=== PATIENT | male | born 1970 | race Caucasian/White ===

== ENCOUNTER 2016-11-04 14:57 | Emergency (ER) | payer BC, MEDICAID ==
--- NOTE | 2016-11-04 15:32 | ED ---
General Adult HPI - General Chief complaint: Recheck/Abnormal Lab/Rx Stated complaint: Sent by PCP for medication reaction Time Seen by Provider: 11/04/16 15:14 Source: patient, RN notes reviewed Mode of arrival: ambulatory Limitations: no limitations - History of Present Illness Initial comments: 46-year-old male presents emergency Department for recheck. Patient apparently to have of his prescription of Xanax last 5 days. Patient has only 42 tablets left of is 90 tab prescription filled on October 29. Patient has not had any Xanax yesterday or today. This apparently happened on Thursday. Patient was evaluated by PCP yesterday who ordered lab work and wanted to have a recheck today but he refuses to go and so is advised to be taken to the emergency department. Patient states that he was very anxious and that his medication was not calming him down so he kept taking them. Patient states he had no intention of harming himself there was very vague at this time. Patient is here with family who is concerned. Patient states that he did have large amount of nausea vomiting yesterday any states his is from swallowing his tobacco chew. Patient states she's also had a cough and some shortness of breath. Denies any chest pain this time. Patient states he has normal nausea no vomiting no diarrhea today. Patient was extremely lethargic, sleepy yesterday secondary taking his Xanax. Patient not exactly sure how many Xanax she took on Thursday. Patient has been on Xanax for over one year prescribed by primary care physician. - Related Data Home Medications Medication Instructions Recorded Confirmed ALPRAZolam [Xanax] 0.5 mg PO TID PRN 11/04/16 11/04/16 Citalopram Hydrobromide [CeleXA] 40 mg PO DAILY 11/04/16 11/04/16 Omeprazole [PriLOSEC] 20 mg PO DAILY 11/04/16 11/04/16 Suvorexant [Belsomra] 15 mg PO HS 11/04/16 11/04/16 Previous Rx's Medication Instructions Recorded Levofloxacin [Levaquin] 500 mg PO DAILY #10 tab 11/04/16 Allergies Allergy/AdvReac Type Severity Reaction Status Date / Time No Known Allergies Allergy Verified 11/04/16 15:06 Review of Systems ROS Statement: Those systems with pertinent positive or pertinent negative responses have been documented in the HPI. ROS Other: All systems not noted in ROS Statement are negative. Past Medical History Past Medical History: GERD/Reflux, Sleep Apnea/CPAP/BIPAP Additional Past Medical History / Comment(s): Ulcerative colitis, back pain History of Any Multi-Drug Resistant Organisms: None Reported Additional Past Surgical History / Comment(s): colonoscopy, neck surgery Past Anesthesia/Blood Transfusion Reactions: No Reported Reaction Past Psychological History: No Psychological Hx Reported Smoking Status: Current every day smoker Past Alcohol Use History: Occasional Past Drug Use History: None Reported - Past Family History Mother Family Medical History: No Reported History General Exam Limitations: no limitations General appearance: alert, in no apparent distress Head exam: Present: atraumatic, normocephalic, normal inspection Eye exam: Present: normal appearance, PERRL, EOMI. Absent: scleral icterus, conjunctival injection, periorbital swelling ENT exam: Present: normal exam, normal oropharynx, mucous membranes moist, TM's normal bilaterally, normal external ear exam Neck exam: Present: normal inspection, full ROM. Absent: tenderness, meningismus, lymphadenopathy Respiratory exam: Present: normal lung sounds bilaterally. Absent: respiratory distress, wheezes, rales, rhonchi, stridor Cardiovascular Exam: Present: normal rhythm, tachycardia, normal heart sounds. Absent: systolic murmur, diastolic murmur, rubs, gallop, clicks GI/Abdominal exam: Present: soft, normal bowel sounds. Absent: distended, tenderness, guarding, rebound, rigid Neurological exam: Present: alert, oriented X3, CN II-XII intact Psychiatric exam: Present: flat affect Skin exam: Present: warm, dry, intact, normal color. Absent: rash Course Vital Signs 11/04/16 11/04/16 15:03 18:15 Temperature 98.2 F Pulse Rate 110 H 82 Respiratory 20 16 Rate Blood Pressure 125/80 132/71 O2 Sat by Pulse 95 99 Oximetry Medical Decision Making - Medical Decision Making 46-year-old male presented for multiple reasons. Patient did take too many Xanax and had some cardiac behavior yesterday vomiting. Patient is on have pneumonia on x-ray today and he has had a cough. Patient's lab work otherwise within normal limits. Patient was evaluated by EPS does not meet inpatient criteria. EPS did discuss case with psychiatrist. They long discussion with his medication and abusing his medications. Patient is advised that he cannot stop his Xanax abruptly secondary to possible withdrawal symptoms because his been taken for over a year. Patient does have 42 tablets of Xanax left at this time he was educated on proper usage of his medication but also place to wean off his medication by EPS. Patient will be discharged follow-up with Dr. Moran in one to 2 days. - Lab Data Result diagrams: 11/04/16 15:55 11/04/16 15:55 Lab Results 11/04/16 11/04/16 11/04/16 Range/Units 15:55 15:55 15:55 WBC 17.0 H (3.8-10.6) k/uL RBC 4.51 (4.30-5.90) m/uL Hgb 12.0 L (13.0-17.5) gm/dL Hct 37.5 L (39.0-53.0) % MCV 83.1 (80.0-100.0) fL MCH 26.5 (25.0-35.0) pg MCHC 31.9 (31.0-37.0) g/dL RDW 13.4 (11.5-15.5) % Plt Count 247 (150-450) k/uL Neutrophils % 84 % Lymphocytes % 9 % Monocytes % 5 % Eosinophils % 1 % Basophils % 0 % Neutrophils # 14.3 H (1.3-7.7) k/uL Lymphocytes # 1.5 (1.0-4.8) k/uL Monocytes # 0.9 (0-1.0) k/uL Eosinophils # 0.2 (0-0.7) k/uL Basophils # 0.0 (0-0.2) k/uL Hypochromasia Slight PT 10.7 (9.0-12.0) sec INR 1.1 (<1.1) APTT 24.0 (22.0-30.0) sec Sodium 140 (137-145) mmol/L Potassium 4.0 (3.5-5.1) mmol/L Chloride 104 (98-107) mmol/L Carbon Dioxide 27 (22-30) mmol/L Anion Gap 9 mmol/L BUN 15 (9-20) mg/dL Creatinine 1.10 (0.66-1.25) mg/dL Est GFR (MDRD) Af Amer >60 (>60 ml/min/1.73 sqM) Est GFR (MDRD) Non-Af >60 (>60 ml/min/1.73 sqM) Glucose 106 H (74-99) mg/dL Calcium 9.5 (8.4-10.2) mg/dL Total Bilirubin 0.9 (0.2-1.3) mg/dL AST 16 L (17-59) U/L ALT 28 (21-72) U/L Alkaline Phosphatase 60 (38-126) U/L Troponin I (0.000-0.034) ng/mL Total Protein 7.1 (6.3-8.2) g/dL Albumin 3.9 (3.5-5.0) g/dL Lipase 33 (23-300) U/L TSH 0.287 L (0.465-4.680) mIU/L Free T4 1.05 (0.78-2.19) ng/dL Urine Color Urine Appearance (Clear) Urine pH (5.0-8.0) Ur Specific Kirksey (1.001-1.035) Urine Protein (Negative) Urine Glucose (UA) (Negative) Urine Ketones (Negative) Urine Blood (Negative) Urine Nitrite (Negative) Urine Bilirubin (Negative) Urine Urobilinogen (<2.0) mg/dL Ur Leukocyte Esterase (Negative) Salicylates <1.0 mg/dL Urine Opiates Screen (NotDetected) Ur Oxycodone Screen (NotDetected) Urine Methadone Screen (NotDetected) Ur Propoxyphene Screen (NotDetected) Acetaminophen <10.0 ug/mL Ur Barbiturates Screen (NotDetected) U Tricyclic Antidepress (NotDetected) Ur Phencyclidine Scrn (NotDetected) Ur Amphetamines Screen (NotDetected) U Methamphetamines Scrn (NotDetected) U Benzodiazepines Scrn (NotDetected) Urine Cocaine Screen (NotDetected) U Marijuana (THC) Screen (NotDetected) Serum Alcohol <10 mg/dL 11/04/16 11/04/16 Range/Units 15:55 18:20 WBC (3.8-10.6) k/uL RBC (4.30-5.90) m/uL Hgb (13.0-17.5) gm/dL Hct (39.0-53.0) % MCV (80.0-100.0) fL MCH (25.0-35.0) pg MCHC (31.0-37.0) g/dL RDW (11.5-15.5) % Plt Count (150-450) k/uL Neutrophils % % Lymphocytes % % Monocytes % % Eosinophils % % Basophils % % Neutrophils # (1.3-7.7) k/uL Lymphocytes # (1.0-4.8) k/uL Monocytes # (0-1.0) k/uL Eosinophils # (0-0.7) k/uL Basophils # (0-0.2) k/uL Hypochromasia PT (9.0-12.0) sec INR (<1.1) APTT (22.0-30.0) sec Sodium (137-145) mmol/L Potassium (3.5-5.1) mmol/L Chloride (98-107) mmol/L Carbon Dioxide (22-30) mmol/L Anion Gap mmol/L BUN (9-20) mg/dL Creatinine (0.66-1.25) mg/dL Est GFR (MDRD) Af Amer (>60 ml/min/1.73 sqM) Est GFR (MDRD) Non-Af (>60 ml/min/1.73 sqM) Glucose (74-99) mg/dL Calcium (8.4-10.2) mg/dL Total Bilirubin (0.2-1.3) mg/dL AST (17-59) U/L ALT (21-72) U/L Alkaline Phosphatase (38-126) U/L Troponin I <0.012 (0.000-0.034) ng/mL Total Protein (6.3-8.2) g/dL Albumin (3.5-5.0) g/dL Lipase (23-300) U/L TSH (0.465-4.680) mIU/L Free T4 (0.78-2.19) ng/dL Urine Color Yellow Urine Appearance Clear (Clear) Urine pH 6.5 (5.0-8.0) Ur Specific Kirksey 1.010 (1.001-1.035) Urine Protein Negative (Negative) Urine Glucose (UA) Negative (Negative) Urine Ketones Negative (Negative) Urine Blood Negative (Negative) Urine Nitrite Negative (Negative) Urine Bilirubin Negative (Negative) Urine Urobilinogen <2.0 (<2.0) mg/dL Ur Leukocyte Esterase Negative (Negative) Salicylates mg/dL Urine Opiates Screen Detected H (NotDetected) Ur Oxycodone Screen Not Detected (NotDetected) Urine Methadone Screen Not Detected (NotDetected) Ur Propoxyphene Screen Not Detected (NotDetected) Acetaminophen ug/mL Ur Barbiturates Screen Not Detected (NotDetected) U Tricyclic Antidepress Not Detected (NotDetected) Ur Phencyclidine Scrn Not Detected (NotDetected) Ur Amphetamines Screen Not Detected (NotDetected) U Methamphetamines Scrn Not Detected (NotDetected) U Benzodiazepines Scrn Detected H (NotDetected) Urine Cocaine Screen Not Detected (NotDetected) U Marijuana (THC) Screen Not Detected (NotDetected) Serum Alcohol mg/dL Disposition Clinical Impression: Pneumonia, Benzodiazepine misuse, Nausea & vomiting Disposition: HOME SELF-CARE Condition: Stable Instructions: Bacterial Pneumonia (ED) Additional Instructions: Please return to the Emergency Department if symptoms worsen or any other concerns. Prescriptions: Levofloxacin [Levaquin] 500 mg PO DAILY #10 tab Time of Disposition: 19:01
[2016-11-04 16:11] LABS: Basophils % (A) 0 %; CHCM 31.4; Eosinophils # (A) 0.2 k/uL (0-0.7); Eosinophils % (A) 1 %; HCT 37.5 % (39.0-53.0); HDW 2.52; Hypochromasia Slight; Luc # (Auto) 0.18; Luc % (Auto) 1; Lymphocytes # (A) 1.5 k/uL (1.0-4.8); Lymphocytes % (A) 9 %; MCH 26.5 pg (25.0-35.0); MCHC 31.9 g/dL (31.0-37.0); MCV 83.1 fL (80.0-100.0); Mean Platelet Volume 7.2; Monocytes # (A) 0.9 k/uL (0-1.0); Monocytes % (A) 5 %; Neutrophils # (A) 14.3 k/uL (1.3-7.7); Neutrophils % (A) 84 %; RBC 4.51 m/uL (4.30-5.90); RDW 13.4 % (11.5-15.5); WBC (Perox) 17.05
[2016-11-04 16:17] LABS: ALT 28 U/L (21-72); AST 16 U/L (17-59); Acetaminophen <10.0 ug/mL; Alcohol <10 mg/dL; Alkaline Phosphatase 60 U/L (38-126); Anion Gap 9 mmol/L; Blood Urea Nitrogen 15 mg/dL (9-20); Calcium 9.5 mg/dL (8.4-10.2); Carbon Dioxide 27 mmol/L (22-30); Chloride 104 mmol/L (98-107); Glucose 106 mg/dL (74-99); INR 1.1 (<1.1); Non-African American GFR(MDRD) >60 (>60 ml/min/1.73 sqM); Prothrombin Time 10.7 sec (9.0-12.0); Salicylate <1.0 mg/dL; Sodium 140 mmol/L (137-145); Total Bilirubin 0.9 mg/dL (0.2-1.3); Total Protein 7.1 g/dL (6.3-8.2)
--- NOTE | 2016-11-04 16:20 | XR ---
EXAMINATION TYPE: XR chest 2V DATE OF EXAM: 11/04/2016 4:13 PM COMPARISON: None HISTORY: 46-year-old male with a pain TECHNIQUE: PA and lateral views FINDINGS: The cardiomediastinal silhouette, aorta, and pulmonary vasculature are within normal limits. There is some focal patchy opacity at the left lung base. No pleural effusion. IMPRESSION: Focal area of prominent atelectasis or early infiltrate at the left base. Early pneumonia not exclude d. Consider follow-up after any potential treatment.
[2016-11-04] MEDS ORDERED: SODIUM CHLORIDE 0.9% 1,000 ML IV ONE (16:21)
[2016-11-04 18:37] LABS: Appearance,Urine Clear (Clear); Bilirubin,Urine Negative (Negative); Glucose,Urine (UA) Negative (Negative); Ketones,Urine Negative (Negative); Leukocyte Esterase,Urine Negative (Negative); Nitrite,Urine Negative (Negative); PH, Urine 6.5 (5.0-8.0); Protein,Urine Negative (Negative); UA Billing (MACRO vs. MICRO) CHEM; Urobilinogen,Urine <2.0 mg/dL (<2.0)
[2016-11-04] MEDS ORDERED: LEVOFLOXACIN 500 MG TAB PO STA (18:39)
[2016-11-04 19:18] VITALS: BP 125/74; PULSE 105; RESP 18; TEMP 98.5
== END 2016-11-04 19:18 | disposition home or self-care (01) ==
LOC: EC 14:57
DX: F19.90 Other psychoactive substance use, unspecified, uncomplicated (principal); J18.9 Pneumonia, unspecified organism; R11.2 Nausea with vomiting, unspecified; K21.9 Gastro-esophageal reflux disease without esophagitis; F17.200 Nicotine dependence, unspecified, uncomplicated; Z79.899 Other long term (current) drug therapy
CPT/HCPCS: 36415; 71020; 80053; 80306; 80320; 81003; 82075; 83520; 83690; 84439; 84443; 84484; 85025; 85610; 85730; 93005; 96360; 99284

== ENCOUNTER 2017-05-22 07:55 | Day surgery (SDC) | payer MEDICAID ==
[2017-05-20 16:08] VITALS: BMI 28.7
[~2017-05-22 07:55] MED LIST: LACTATED RINGERS 1,000 ML IV ONE
[2017-05-22] MEDS ORDERED: LIDOCAINE 1% 20 ML VIAL (10MG/ML) FOR IV START INTRADERMA ONE (08:25)
[2017-05-22 08:29] VITALS: RESP 16; TEMP 99.5
[2017-05-22] MEDS ORDERED: LIDOCAINE 1% INJ 10MG/ML (20 ML MDV) ONE (08:30)
[2017-05-22] MEDS ORDERED: PROPOFOL 10 MG/ML 20 ML VIAL IV ONE (08:30)
--- NOTE | 2017-05-22 08:50 | P.PCN ---
Date of Procedure: 05/22/17 Procedure(s) Performed: BRIEF HISTORY: Patient is a 47-year-old pleasant white male, scheduled for an elective colonoscopy as a part of screening for long-standing history of ulcerative colitis.he was diagnosed with ulcerative colitis at age 20. Last endoscopy was in [address] Pacheco and was normal according to the patient. PROCEDURE PERFORMED: Colonoscopy with biopsy. PREOPERATIVE DIAGNOSIS: surveillance of long-standing history of ulcerative colitis. IV sedation per Anesthesia. PROCEDURE: After informed consent was obtained, the patient, was brought into the endoscopy unit. IV sedation was administered by Anesthesia under continuous monitoring. Digital rectal examination was normal. Initially the Olympus CF- 160 flexible video colonoscope was then inserted in the rectum, gradually advanced into the cecum without any difficulty. Careful examination was performed as the scope was gradually being withdrawn. Ileocecal valve and the appendiceal orifice were visualized and appeared normal. Prep was excellent. Mucosa of the cecum, ascending colon, transverse colon, descending colon, sigmoid colon, and rectum appeared normal. random biopsies were done from the cecum to rectum at every 10 cm intervals to rule out dysplasia.Retroflexion was performed in the rectum and no lesions were seen. The patient tolerated the procedure well. IMPRESSION: Normal-appearing colon from rectum to cecumwith no evidence of active colitis or colon rectal neoplasia . RECOMMENDATIONS: Findings of this examination were discussed with the patient as well as his family. He was advised to follow with the biopsy results.he can have a repeat severance colonoscopy in 3 years..
[2017-05-22 09:06] VITALS: BP 130/76; PULSE 103
== END 2017-05-22 09:24 | disposition home or self-care (01) ==
LOC: ORWHC2ENDO 07:55
PROVIDERS: ATTEND Internal Medicine Gastroenterology
DX: Z12.11 Encounter for screening for malignant neoplasm of colon (principal); K51.90 Ulcerative colitis, unspecified, without complications; K21.9 Gastro-esophageal reflux disease without esophagitis; G47.33 Obstructive sleep apnea (adult) (pediatric); Z79.899 Other long term (current) drug therapy
CPT/HCPCS: 88305; 45380; J2001; J2704

== ENCOUNTER 2019-06-27 01:25 | Emergency (ER) | payer MEDICAID ==
[2019-06-27 01:35] VITALS: BP 155/100; PULSE 79; RESP 20; TEMP 98.5
[2019-06-27] MEDS ORDERED: ACETAMINOPHEN TAB 500 MG TAB PO STA (01:48)
[2019-06-27] MEDS ORDERED: IBUPROFEN 600 MG TAB PO STA (01:48)
[2019-06-27] MEDS ORDERED: TOPICAL SKIN ADHESIVE 1 EACH AMP TOPICAL ONE (01:48)
--- NOTE | 2019-06-27 01:52 | ED ---
Wound/Laceration HPI - General Chief Complaint: Wound/Laceration Stated Complaint: Fall - face lac Time Seen by Provider: 06/27/19 01:37 Source: patient, family Mode of arrival: ambulatory Limitations: no limitations - History of Present Illness Initial Comments: 49-year-old male patient presents to the emergency department today for evaluation of laceration to his nasal bridge. Patient states he was up using the bathroom when he tripped over a rug and fell striking his face on the floor. Patient denies loss of consciousness with this injury. Denies any current headache, neck pain, or back pain. Denies any extremity injuries. Denies any bleeding from the nostrils. Patient denies any chest pain, shortness of breath, dizziness, weakness, abdominal pain, nausea, vomiting, or difficulties with bowel movements or urination. - Related Data Home Medications Medication Instructions Recorded Confirmed ALPRAZolam [Xanax] 0.5 mg PO TID PRN 11/04/16 05/22/17 Omeprazole [PriLOSEC] 20 mg PO DAILY PRN 11/04/16 05/22/17 FLUoxetine HCL [PROzac] 20 mg PO HS 05/20/17 05/22/17 Mesalamine [Asacol Hd] 800 mg PO DAILY 05/20/17 05/22/17 Zolpidem [Ambien] 10 mg PO HS 05/20/17 05/22/17 Allergies Allergy/AdvReac Type Severity Reaction Status Date / Time No Known Allergies Allergy Verified 06/27/19 01:35 Review of Systems ROS Statement: Those systems with pertinent positive or pertinent negative responses have been documented in the HPI. ROS Other: All systems not noted in ROS Statement are negative. Past Medical History Past Medical History: GERD/Reflux, Sleep Apnea/CPAP/BIPAP Additional Past Medical History / Comment(s): Ulcerative colitis, History of Any Multi-Drug Resistant Organisms: None Reported Additional Past Surgical History / Comment(s): colonoscopy, neck surgery- to remove a fatty mass Past Anesthesia/Blood Transfusion Reactions: No Reported Reaction Past Psychological History: Anxiety Smoking Status: Former smoker - Past Family History Mother Family Medical History: No Reported History General Exam Limitations: no limitations General appearance: alert, in no apparent distress, other (This is a well- developed, well-nourished adult male patient in no acute distress. Vital signs upon presentation are temperature 98.5F, pulse 79, respirations 20, blood pressure 135/100, pulse ox 96% on room air) Head exam: Present: atraumatic, normocephalic, normal inspection Eye exam: Present: normal appearance, PERRL, EOMI. Absent: scleral icterus, conjunctival injection, periorbital swelling ENT exam: Present: normal oropharynx, mucous membranes moist, TM's normal bilaterally, other (There is a 1 cm irregular laceration noted to the bridge of the nose. No surrounding swelling or ecchymosis. No raccoon eyes or wagner's sign. No septal hematoma noted.) Neck exam: Present: normal inspection, full ROM, other (Nontender, no step-off, no deformity to firm midline palpation of the posterior cervical spine. Full range of motion without pain or limitation.). Absent: tenderness, meningismus, lymphadenopathy Respiratory exam: Present: normal lung sounds bilaterally. Absent: respiratory distress, wheezes, rales, rhonchi, stridor Cardiovascular Exam: Present: regular rate, normal rhythm, normal heart sounds. Absent: systolic murmur, diastolic murmur, rubs, gallop, clicks Back exam: Present: normal inspection, other (Nontender, no step-off, no deformity to firm midline palpation of the thoracic and lumbar vertebrae. Full range of motion without pain or limitation.). Absent: vertebral tenderness Neurological exam: Present: alert, oriented X3, CN II-XII intact Psychiatric exam: Present: normal affect, normal mood Skin exam: Present: warm, dry, intact, normal color. Absent: rash Course Vital Signs 06/27/19 01:32 Temperature 98.5 F Pulse Rate 79 Respiratory 20 Rate Blood Pressure 155/100 O2 Sat by Pulse 96 Oximetry Procedures - Laceration Laceration #1 Consent Obtained: verbal consent Indication: laceration Site: face Size (cm): 2 Description: irregular Pre-repair: irrigated extensively Type of Sutures: other (exofin skin adhesive) Patient Tolerated Procedure: well, no complications Medical Decision Making - Medical Decision Making 49-year-old male patient presents to the emergency department today for evaluation of laceration to the nasal bridge. Physical examination did reveal a 2 cm irregular laceration noted, minimal bleeding. Laceration was cleansed and repaired using skin adhesive. Patient is neurologically intact with no focal deficits. Is not reporting headache. Had no nasal bleeding. He'll be discharged follow up with his primary care physician for recheck in 1-2 days. Return parameters discussed in detail. He verbalizes understanding and agrees with this plan. Disposition Clinical Impression: Facial laceration Disposition: HOME SELF-CARE Condition: Good Instructions (If sedation given, give patient instructions): Skin Adhesive Care (ED), Facial Laceration (ED) Additional Instructions: Monitor for signs or symptoms of infection including but not limited to redness, swelling, drainage of pus, fever, or chills. Follow-up with her primary care physician for recheck in 1-2 days. Return to the emergency department immediately for any new, worsening, or concerning symptoms. Is patient prescribed a controlled substance at d/c from ED?: No Referrals: Vic London Jr, [Primary Care Provider] - 1-2 days Time of Disposition: 02:14
== END 2019-06-27 02:27 | disposition home or self-care (01) ==
LOC: EC 01:25
DX: S01.21XA Laceration without foreign body of nose, initial encounter (principal); F41.9 Anxiety disorder, unspecified; G47.30 Sleep apnea, unspecified; Z99.89 Dependence on other enabling machines and devices; Z87.891 Personal history of nicotine dependence; Z79.899 Other long term (current) drug therapy; W18.09XA Striking against other object with subsequent fall, initial encounter; Y92.002 Bathroom of unspecified non-institutional (private) residence as the place of occurrence of the external cause
CPT/HCPCS: 12011; 99282

== ENCOUNTER 2020-03-14 08:55 | Day surgery (SDC) | payer MEDICAID ==
[2020-03-09 15:31] VITALS: BMI 28.7
[~2020-03-14 08:55] MED LIST changes: -LACTATED RINGERS 1,000 ML IV ONE; +LACTATED RINGERS 1,000 ML IV SCH
[2020-03-14 09:13] VITALS: TEMP 97.3
[2020-03-14] MEDS ORDERED: LIDOCAINE 1% (10MG/ML) FOR IV START INTRADERMA ONE (09:17)
[2020-03-14] MEDS ORDERED: PROPOFOL 10 MG/ML 20 ML VIAL IV ONE (10:08)
[2020-03-14] MEDS ORDERED: LIDOCAINE 1% INJ 10MG/ML (20 ML MDV) ONE (10:08)
--- NOTE | 2020-03-14 10:22 | P.PCN ---
Date of Procedure: 03/14/20 Procedure(s) Performed: BRIEF HISTORY: Patient is a 49-year-old pleasant to male scheduled for an elective colonoscopy as a part of surveillance of long-standing history of ulcerative colitis diagnosed at age 20. He hasn't clinical remission. His last colonoscopy was 3 years ago. PROCEDURE PERFORMED: Colonoscopy. PREOPERATIVE DIAGNOSIS: Long-standing history of ulcerative colitis. IV sedation per Anesthesia. PROCEDURE: After informed consent was obtained, the patient, was brought into the endoscopy unit. IV sedation was administered by Anesthesia under continuous monitoring. Digital rectal examination was normal. Initially the Olympus CF-160 flexible video colonoscope was then inserted in the rectum, gradually advanced into the cecum without any difficulty. Careful examination was performed as the scope was gradually being withdrawn. Ileocecal valve and the appendiceal orifice were visualized and appeared normal. Prep was poor and several areas of the colon. Thorough irrigation was performed.. Mucosa of the cecum, ascending colon, transverse colon, descending colon, sigmoid colon, and rectum appeared normal. Biopsies were done from the cecum to rectum at every 10 cm into well. Retroflexion was performed in the rectum and no lesions were seen. The patient tolerated the procedure well. IMPRESSION: Normal-appearing colon from rectum to cecum with no evidence of colitis or colorectal neoplasia. RECOMMENDATIONS: Findings of this examination were discussed with the patient as well as a family. He was advised to follow with the biopsy results. If there is no evidence of dysplasia he can have a repeat colonoscopy in 2-3 years..
[2020-03-14 10:43] VITALS: BP 135/85; PULSE 73; RESP 20
== END 2020-03-14 10:54 | disposition home or self-care (01) ==
LOC: ORWHC2ENDO 08:55
PROVIDERS: ATTEND Internal Medicine Gastroenterology
DX: K51.90 Ulcerative colitis, unspecified, without complications (principal); K21.9 Gastro-esophageal reflux disease without esophagitis; Z79.899 Other long term (current) drug therapy; F17.200 Nicotine dependence, unspecified, uncomplicated; S02.5XXA Fracture of tooth (traumatic), initial encounter for closed fracture
CPT/HCPCS: 88305; 45380; J2001; J2704

== ENCOUNTER 2020-04-14 16:43 | Emergency (ER) | payer MEDICAID ==
[2020-04-14 17:22] VITALS: BP 126/73; PULSE 97; RESP 18; TEMP 98.8
[2020-04-14] MEDS ORDERED: KETOROLAC 15 MG/ML 1 ML VIAL IM STA (18:04)
--- NOTE | 2020-04-14 18:54 | XR ---
EXAMINATION TYPE: XR ankle complete RT DATE OF EXAM: 04/14/2020 COMPARISON: NONE HISTORY: Pain. TECHNIQUE: 3 views Ankle mortise is anatomic. There is soft tissue swelling over the lateral malleolus. there is a 5 mm nondisplaced chip fracture of the tip of the distal fibula. IMPRESSION: Acute chip fracture of the tip of the distal fibula with soft tissue swelling.
[2020-04-14] MEDS ORDERED: ACET/COD 300 MG/30 MG STARTER PACK 6 TAB BTL PO STA (19:44)
--- NOTE | 2020-04-14 19:45 | ED ---
Lower Extremity Injury HPI - General Chief Complaint: Extremity Injury, Lower Stated Complaint: RIGHT ANKLE INJURY Time Seen by Provider: 04/14/20 17:20 Source: patient Mode of arrival: wheelchair Limitations: no limitations - History of Present Illness Initial Comments: Patient is a 50-year-old male with past history of ulcerative colitis who presents emergency departments with reported bradycardia ankle pain. States he was stepping off a deck when he suffered an inversion injury and heard a cracking sound in his right ankle. Patient's was able to get up and place weight onto it. Reports that he has medial and lateral pain. Denies taking any medications for his symptoms. Presents to the emergency department for evaluation. Denies any other injuries. Did not hit his head. No associated nausea/vomiting. There are no alleviating, precipitating or modifying factors - Related Data Home Medications Medication Instructions Recorded Confirmed Omeprazole [PriLOSEC] 20 mg PO DAILY 11/04/16 03/14/20 FLUoxetine HCL [PROzac] 40 mg PO HS 05/20/17 03/14/20 Zolpidem [Ambien] 10 mg PO HS 05/20/17 03/14/20 Previous Rx's Medication Instructions Recorded Acetaminophen-Codeine 300-30mg 1 tab PO Q6H PRN 3 Days #12 tablet 04/14/20 [Tylenol w/codeine #3] Allergies Allergy/AdvReac Type Severity Reaction Status Date / Time No Known Allergies Allergy Verified 04/14/20 17:22 Review of Systems ROS Statement: Those systems with pertinent positive or pertinent negative responses have been documented in the HPI. ROS Other: All systems not noted in ROS Statement are negative. Past Medical History Past Medical History: GERD/Reflux Additional Past Medical History / Comment(s): Ulcerative Colitis. History of Any Multi-Drug Resistant Organisms: None Reported Additional Past Surgical History / Comment(s): Colonoscopy, neck surgery to remove a fatty mass. Past Anesthesia/Blood Transfusion Reactions: No Reported Reaction Past Psychological History: Depression Smoking Status: Current some day smoker Past Alcohol Use History: Occasional Past Drug Use History: None Reported - Past Family History Mother Family Medical History: No Reported History General Exam Limitations: no limitations General appearance: alert, in no apparent distress Head exam: Present: atraumatic, normocephalic, normal inspection Extremities exam: Present: tenderness (right ankle with swelling. Pain medial and lateral mallolus. 2+ DP and PT pulses. No pain with full ROM of bilateral hips, knees or in the feet. Intact sensation over the medial, lateral and dorsal b/l le) Course Vital Signs 04/14/20 17:19 Temperature 98.8 F Pulse Rate 97 Respiratory 18 Rate Blood Pressure 126/73 O2 Sat by Pulse 99 Oximetry Procedures - Orthopedic Splinting/Casting Injury #1 Side: right Lower Extremity Injury Location: short leg Lower Extremity Immobilizer: posterior splint, synthetic pre-padded splint Other Orthopedic Equipment: crutches Medical Decision Making - Medical Decision Making Upon arrival the patient is placed into room 17. A thorough history and physical exam was performed. Patient was given a 30 mg IM injection of Toradol. He was sent for an x-ray of his right ankle which demonstrates a chip fracture of the distal fibula. I discussed results with the patient. He is placed in a posterior splint. Patient is to not weight bear. He is given a prescription for crutches and Tylenol 3. Patient is to follow-up with orthopedic doctors for further management. Return to the emergency room for any new or worsening symptoms. Patient agreed to this treatment plan he was discharged home in stable condition Disposition Clinical Impression: Right fibular fracture Disposition: HOME SELF-CARE Condition: Stable Instructions (If sedation given, give patient instructions): Ankle Fracture (ED) Additional Instructions: Please follow-up with orthopedic doctor. Return to the emergency room for any new or worsening symptoms. Do not weight bear. Rest, ice and elevate the extremity Prescriptions: Acetaminophen-Codeine 300-30mg [Tylenol w/codeine #3] 1 tab PO Q6H PRN 3 Days #12 tablet PRN Reason: Pain Is patient prescribed a controlled substance at d/c from ED?: Yes When asked, does pt state using other controlled substances?: No If prescribed controlled substance>3 days was MAPS reviewed?: Prescribed <3 Days If opioid is for acute pain is fill amount 7 days or less?: Yes If Rx opioid, was Start Talking consent form obtained?: Yes Referrals: Jeremiah Norris MD [Primary Care Provider] - 1-2 days Gopal Abad DO [Doctor of Osteopathic Medicine] - 1-2 days Time of Disposition: 19:44
== END 2020-04-14 20:20 | disposition home or self-care (01) ==
LOC: EC 16:43
DX: S82.401A Unspecified fracture of shaft of right fibula, initial encounter for closed fracture (principal); K21.9 Gastro-esophageal reflux disease without esophagitis; F32.9 Major depressive disorder, single episode, unspecified; F17.200 Nicotine dependence, unspecified, uncomplicated; Z79.899 Other long term (current) drug therapy; X50.9XXA Other and unspecified overexertion or strenuous movements or postures, initial encounter
CPT/HCPCS: 73610; 99283; 29515; 96372; J1885

== ENCOUNTER 2022-07-01 05:55 | Day surgery (SDC) | payer MEDICAID ==
[2022-06-27 13:40] VITALS: BMI 29.4
[~2022-07-01 05:55] MED LIST changes: -LACTATED RINGERS 1,000 ML IV SCH; +LIDOCAINE 1% (10MG/ML) FOR IV START INTRADERMA PRN
[2022-07-01] MEDS: LACTATED RINGERS 1,000 ML IV SCH ×2 (06:14→06:59)
[2022-07-01 06:19] VITALS: TEMP 96.9
[2022-07-01] MEDS ORDERED: LIDOCAINE 2% INJ 20 MG/ML (2 ML VIAL) ONE (07:00)
[2022-07-01] MEDS ORDERED: PROPOFOL 10 MG/ML 20 ML VIAL IV ONE (07:00)
--- NOTE | 2022-07-01 07:29 | P.PCN ---
Date of Procedure: 07/01/22 Procedure(s) Performed: BRIEF HISTORY: Patient is a 52-year-old pleasant white male scheduled for an elective colonoscopy as a part of surveillance of long-standing history of ulcerative colitis diagnosed at age 20. He is been having intermittent rectal bleeding and diarrhea for the last 3 months. Currently maintained on mesalamine 1600 mg daily.daily. PROCEDURE PERFORMED: Colonoscopy with biopsy and snare polypectomy . PREOPERATIVE DIAGNOSIS: IV sedation per Anesthesia. PROCEDURE: After informed consent was obtained, the patient, was brought into the endoscopy unit. IV sedation was administered by Anesthesia under continuous monitoring. Digital rectal examination was normal. Initially the Olympus CF-160 flexible video colonoscope was then inserted in the rectum, gradually advanced into the cecum without any difficulty. Careful examination was performed as the scope was gradually being withdrawn. Ileocecal valve and the appendiceal orifice were visualized and appeared normal. Prep was excellent. Mucosa of the cecum, ascending colon, transverse colon, descending colon,appeared normal. In the sigmoid colon there was a 3-4 cm elongated did pedunculated polyp that was removed by snare polypectomy. Mucosa of the sigmoid colon, and rectum appeared normal. random biopsies were done from the cecum to rectum at every 10 cm intervals to rule out dysplasia. Retroflexion was performed in the rectum and no lesions were seen. The patient tolerated the procedure well. IMPRESSION: 3 cm to 4 cm elongated pedunculated polyp in the sigmoid colon status post polypectomy rest of the colon appeared normal RECOMMENDATIONS: Findings of this examination were discussed with the patientAs well as a family. He was advised to follow with the biopsy results. Recommend repeat colonoscopy in 2 years. Continue mesalamine 1600 mg daily. Follow-up in the office in 2-3 weeks.
[2022-07-01 07:36] VITALS: RESP 16
[2022-07-01 08:05] VITALS: BP 136/88; PULSE 81
== END 2022-07-01 08:14 | disposition home or self-care (01) ==
LOC: ORWHC2ENDO 05:55
PROVIDERS: ATTEND Internal Medicine Gastroenterology
DX: K63.5 Polyp of colon (principal); K52.9 Noninfective gastroenteritis and colitis, unspecified; K62.5 Hemorrhage of anus and rectum; I10 Essential (primary) hypertension; K21.9 Gastro-esophageal reflux disease without esophagitis; F17.200 Nicotine dependence, unspecified, uncomplicated; Z79.899 Other long term (current) drug therapy
CPT/HCPCS: 45380; 45385; J2704; J2001; 88305